=== PATIENT | male | born 1990 | race Caucasian/White ===

== ENCOUNTER 2017-06-23 08:07 | Emergency (ER) | payer OTHER ==
[2017-06-23 08:13] VITALS: RESP 16; TEMP 98.2; O2SAT 95
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
[2017-06-23 09:51] VITALS: BP 145/82; PULSE 72
== END 2017-06-23 09:51 | disposition home or self-care (01) ==
DX: S70.01XA Contusion of right hip, initial encounter (principal); V18.0XXA Pedal cycle driver injured in noncollision transport accident in nontraffic accident, initial encounter; Y99.8 Other external cause status; Y93.55 Activity, bike riding